=== PATIENT | female | born 1940 | race Caucasian/White ===

== ENCOUNTER 2021-10-20 07:34 | Observation (INO) | payer MEDICARE ==
[~2021-10-20] VITALS: Ht 170.2 cm; Wt 77.2 kg
[~2021-10-20 07:34] MED LIST: CALCIUM-MAGNES1 EAC4 PO; METFORMIN HCL500 MG PO; NITROGLYCERIN0.4 MG SL; PLAVIX75 MG PO; REPATHA SU140 MG/1 M SUB-Q; SPIRONOLACTONE25 MG PO; TOPROL XL50 MG PO; VITAMIN C1000 MG PO
--- NOTE | 2021-10-20 11:50 | NUR ---
10/20/21 1150 Rhina Franco 1132 PT ARRIVED IN PACU SLEEPY. SILVIANO DRAIN X 2 TO BULB SUCTION. 1140 PT AWAKENS TO VERBAL STIMULI AND FALLS BACK TO SLEEP.
--- NOTE | 2021-10-20 12:46 | NUR ---
PT TO ROOM IS PRESENT. PT ANSWERS QUESTIONS APPROPRIATELY REMAINS EYES CLOSED, 3 PERSON TRANSFER TO BED. RESTING NOW, AGREES SHE IS COMFORTABLE. DRAIN CARE EDUCATION AND DEMONSTRATION PROVIDED FOR HE ASKS APPROPRIATE QUESTIONS AND THEN VERBALIZES UNDERSTANDING.
--- NOTE | 2021-10-20 13:24 | NUR ---
PT AWAKE C/O SOME UPPER RIGHT ARM PAIN DENIES NEED OF PAIN MEDICATIONS. ENCOURAGED TYLENOL PT AGREES. REMAINS IN THE ROOM. SIPS OF H20 WELL TOLERATED. PT REFUSES FOOD ITEMS FOR NOW.
[2021-10-20] MEDS ORDERED: METOPROLOL TART50 MG PO (13:55)
--- NOTE | 2021-10-20 13:59 | NUR ---
PT AND HAVE JUST ENTERED RM-WAITING FOR RN. GAVE ENCOURAGEMENT, BLESSING AND WILL FOLLOW NEEDED
--- NOTE | 2021-10-20 14:13 | NUR ---
MED REC COMPLETED BY PHARMACY
--- NOTE | 2021-10-20 14:31 | NUR ---
PT IS AWAKE VISITING WITH HER . AGREES THE PAIN IN HER ARM IS DECREASED STATES "I KNOW IT'S THERE, BUT IT'S NOT BOTHERING ME" FRESH FRUIT WELL TOLERATED AGREES TO HAVE A GRILLED CHEESE NOW. FRESH H20 PROVIDED CALL LIGHT IN REACH.
--- NOTE | 2021-10-20 15:11 | NUR ---
DHARA BOLANOS CAME IN FOR BREAST CONSULT
--- NOTE | 2021-10-20 15:34 | NUR ---
pt up to the toilet able to void without difficulty. empties tal drain appropriately. pt continues on the side of the bed visiting actively denies discomforts or need
--- NOTE | 2021-10-20 18:11 | NUR ---
PT'S EMPTIES SILVIANO DRAIN AGAIN AND STRIPS THE LINE INSTRUCTED. PT DENIES ANY PAIN CONTINUES TO BE UPBEAT AND TALKATIVE.
--- NOTE | 2021-10-20 18:25 | NUR ---
PATIENT SITTING UP IN BED WATCHING TV, AT BEDSIDE. VITALS AND I&O'S CHARTED. CALL LIGHT IN REACH. NO FURTHER NEEDS AT THIS TIME.
--- NOTE | 2021-10-20 19:41 | NUR ---
REPORT RECEIVED FROM DAY SHIFT RN. PT LYING IN BED ALERT AND ORIENTED. DENIES NEEDS AT THIS TIME. SPOUSE IN ROOM. CALL LIGHT IN REACH. WHITE BOARD UPDATED.
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
--- NOTE | 2021-10-20 21:57 | NUR ---
EVENING ASSESSMENT COMPLETE. SCHEDULED MEDS ADMINISTERED PER EMAR. PT DENIES PAIN OR NAUSEA. DRESSING TO RIGHT CHEST INTACT WITH SCANT AMOUNT DRAINAGE. SILVIANO X 2 ON RIGHT CHEST DRAINED AND RECORDED. ASSISTED PT TO REPOSITION IN BED. WARM BLANKET PROVIDED. LINENS PROVIDED FOR WHO WILL SPEND THE NIGHT. PT FORGETFUL SO BED ALARM IN PLACE. PT DENIES QUESTIONS OR CONCERNS. CALL LIGHT IN REACH.
--- NOTE | 2021-10-21 00:21 | NUR ---
IN TO ROUND ON PT. SBA TO BR TO VOID. AT SINK TO WASH HANDS. BACK TO BED, COSMO WELL. GAIT UNSTEADY AT TIMES. PT DENIES PAIN. SEROSANG DRAINAGE NOTED COMING FROM AROUND SILVIANO #2 INSERTION SITE. SILVIANO #2 STRIPPED AND DRAINED OF 40ML SEROSANG DRAINAGE. DRESSING REINFORCED WITH OPSITE. BED ALARM FOR SAFETY. IN RECLINER AT BED SIDE.
--- NOTE | 2021-10-21 02:02 | NUR ---
VS AND I&O COMPLETE. PT REPORTS SHE IS RESTING WELL. STATES "I CAN TELL IT'S THERE" WHEN ASKED ABOUT PAIN. DENIES PRN AT THIS TIME. FRESH WATER PROVIDED FOR PT AND . NO FURTHER NEEDS. BED ALARM IN PLACE.
--- NOTE | 2021-10-21 04:15 | NUR ---
CALL LIGHT ANSWERED. PT UP TO BR WITH SBA TO VOID. BACK TO BED, COSMO WELL. PT DENIES PAIN. COFFEE AND FRESH WATER PROVIDED FOR PT AND SPOUSE. NO FURTHER NEEDS. CALL LIGHT IN REACH.
--- NOTE | 2021-10-21 05:33 | NUR ---
VS AND I&O COMPLETE. SCHEDULED PAIN MEDS ADMINISTERED PER EMAR. PT DENIES PAIN, REPORTS ACHING AND NUMBNESS IN RIGHT SIDE CHEST. DEGREASING SOLUTION RECLAIMER STRENGTH EQUAL BILAT. DRESSING TO RIGHT SIDE CHEST INTACT WITH SMALL AMOUNT SEROSANG DRAINAGE. SILVIANO X 2 STRIPPED, EMPTIED, AND RECORDED. PT DENIES FURTHER NEEDS. CALL LIGHT IN REACH.
--- NOTE | 2021-10-21 07:20 | NUR ---
Report received from Gabi BURGOS. Pt resting in bed with even and unlabored respirations. at bedside. No needs identified at this time, will continue plan of care.
--- NOTE | 2021-10-21 07:35 | NUR ---
PT AWAKE AND CHATTING WITH , WHO IS IN BEDSIDE CHAIR. LIGHTS ON, WHITE BOARD UPDATED. CALL LIGHT WITHIN REACH, NO FURTHER NEEDS AT THIS TIME. PT ACCEPTED WARM WASHCLOTH.
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
--- NOTE | 2021-10-21 09:07 | NUR ---
PT WATCHING TV WITH . CALL LIGHT WITHIN REACH, NO FURTHER NEEDS. AUBREY BUSTILLOS NOTIFIED OF NO OUTPUT, AND LOW DIASTOLIC READING.
--- NOTE | 2021-10-21 09:15 | NUR ---
Scheduled medications administered, assessment complete. Pt sitting up in bed, A+O, VSS. SILVIANO drains emptied, SILVIANO #1 scant drainage, SILVIANO #2 with 50ml serousanguinous drainage noted. Pt states no pain, "slightly annoying" but tolerable at this time. IV ancef not administered, pt's IV leaking and not usable, Dr Hassan notified and he gives verbal order to remove IV and DC ancef. Dressing to R breast C/D/I, camisole in place over dressing. at bedside, attentive to patient and engaged in plan of care. All questions answered at this time.
[2021-10-21] MEDS ORDERED: ACETAMINOPHEN500 MG PO (12:45)
--- NOTE | 2021-10-21 12:53 | NUR ---
Discharge teaching provided to patient and her who verbalize understanding, all questions answered. Educated extensively regarding SILVIANO drain care and using the log to record amounts. Reiterated Dr Hassan's request of drains to remain in place until each drain putting out <30ml per 24 hours, pt and voice understanding. Written, verbal and demonstration provided. Pt sent with supplies for drain maintenance. IV removal site WNL. Pt dresses self. 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
--- NOTE | 2021-10-21 13:02 | NUR ---
PT WALKING AROUND IN ROOM INDEPENDENTLY, AWAITING D/C. IN ROOM. AUBREY BUSTILLOS NOW IN ROOM DRAINING SILVIANO'S.
--- NOTE | 2021-10-21 13:37 | OR ---
[facility] [address], [place] [address] Signed DATE OF OPERATION: 10/20/2021 SURGEON: Elizabeth Pavon MD PREOPERATIVE DIAGNOSES: 1. 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 2. Clinically positive right axillary lymph nodes. POSTOPERATIVE DIAGNOSES: 1. 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 2. Clinically positive right axillary lymph nodes. PROCEDURE: Right modified radical mastectomy; lateral T-plasty of skin for cosmetic benefit. ANESTHESIA: General LMA; Mickey Soares CRNA INDICATIONS: This 81-year-old white woman is from [place], [place]. She is a patient of Dr. Sony Dhillon of [place]. She was noted to have a lump in the right breast "for years" and mammogram was found to be abnormal on ultrasound biopsy performed on September 18, 2021 at [place], [place] confirmed infiltrating ductal carcinoma. Biopsy of an axillary lymph node was also confirmed to show metastatic disease. The primary tumor was considered to be 3 cm axillary mass about 4 cm in size. Clinical examination shows her to have palpable lymph nodes in the right axilla and ulcerated neoplasm in the right periareolar area. She has no evidence of metastatic disease on chest x-ray. I have reviewed with her exhaustively her options of management to include lumpectomy with axillary dissection, anticipating radiation therapy versus modified radical mastectomy, likely without radiation therapy. The patient lives in an isolated area and has no interest whatsoever in postoperative radiation therapy and on that basis, prefers to undergo mastectomy. I have discussed with the patient and her the risks of bleeding, infection, cosmetic deformity, need for additional treatment almost certainly, given her clinically positive metastatic lymph nodes of the axilla as well as other unforeseen complications. This would include, but not limited to, arm edema and so on. Electronically Signed By: ELIZABETH PAVON MD 10/21/21 9037 PATIENT NAME: TEO SEN OPERATIVE REPORT DATE OF : 42 REPORT #: [id number] PHYSICIAN: ELIZABETH PAVON MD PCP: SONY DHILLON DO REPORT IS CONFIDENTIAL AND NOT TO BE RELEASED WITHOUT AUTHORIZATION [facility] [address] [place] [address] Signed She has pondered her options quite thoroughly and wishes to proceed with mastectomy at this time. FINDINGS: The ulcerated lesion was approximately 3 cm as noted in the imaging studies and near the medial aspect of the areola on the right side. Clinically positive metastatic disease to the low axilla was noted. Complete axillary dissection was accomplished showing the bulk of the clinically obvious abnormality in the low axilla, though a level 3 axillary adenectomy was performed. The long thoracic and thoracodorsal neurovascular bundles were identified and preserved. Given the redundancy of her axillary tissue and so forth, a T-plasty was undertaken for cosmetic benefit. She tolerated procedure well. Blood loss was 100 mL. DESCRIPTION OF PROCEDURE: The patient was brought to the operating room, given a general anesthetic. Preoperative antibiotic Ancef was given. Sequential compression device stockings were used and heparin subcutaneously administered. The right breast and axilla were prepared with a chlorhexidine solution and draped sterilely. An area designated for mastectomy was outlined with a marker, anticipating additional soft tissue to be excised in the lateral aspect, given her redundant axillary folds. Incision was made with a 20 blade and dissection carried through the dermis with electrocautery. Superior and inferior flaps were developed and the breast was then excised in a [id number] and [id number] direction. The remaining axillary lymph nodes including the bulky tissue were easily identified. Dissection was taken beneath the pectoralis. Then, Abbey's nodes between the pectoralis and the pectoralis minor were resected in continuity with the axillary contents. Sharp dissection was used to identify the axillary vein. Dissection was carried inferiorly to this ultimately identifying the long thoracic and thoracodorsal neurovascular bundles and preserving them. Dissection was undertaken thoroughly with wide resection of axillary contents. Clips were applied as necessary to vascular pedicles as necessary. Specimen was ultimately explanted and passed for pathology. Irrigation was undertaken with sterile water. Hemostasis was assured with electrocautery and clips. Two separate stab incisions were made in the inferior aspect of the upper abdomen and 10 mm flat Jc drains placed, one beneath the flap. See others in the depths of the axilla. The skin was closed with interrupted 2-0 Vicryl and T-plasty performed laterally. Complete closure was afforded with running subcuticular 3-0 Vicryl. Steri-Strips were applied as well as an ACTICOAT dressing. Drains were attached to bulb suction. Blood loss was estimated to be 100 mL. Sponge, needle, and instrument counts reported as correct x3. Electronically Signed By: ELIZABETH PAVON MD 10/21/21 1337 PATIENT NAME: TEO SEN OPERATIVE REPORT DATE OF : 42 REPORT #: [id number] PHYSICIAN: ELIZABETH PAVON MD PCP: SONY DHILLON DO REPORT IS CONFIDENTIAL AND NOT TO BE RELEASED WITHOUT AUTHORIZATION [address], [place] [address] Signed MD YULI Ayala/MODL /[id number] cc: Sony Dhillon DO Copies: SONY DHILLON DO ~ Electronically Signed By: ELIZABETH PAVON MD 10/21/21 1337 PATIENT NAME: TEO SEN OPERATIVE REPORT DATE OF : 42 REPORT #: [id number] PHYSICIAN: ELIZABETH PAVON MD PCP: SONY DHILLON DO REPORT IS CONFIDENTIAL AND NOT TO BE RELEASED WITHOUT AUTHORIZATION
--- NOTE | 2021-10-23 13:31 | PATH ---
[facility] [address] [facility] [place] [place] [address] Signed SPECIMEN(S): A RIGHT BREAST WITH AXILLARY TISSUE SPECIMEN SOURCE: A. 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 - Tumor size: 32 mm. - Histologic grade (Tres histologic score): - Glandular/tubular differentiation score: 1 of 3. - Nuclear pleomorphism score: 2 of 3. - Mitotic score: 1 of 3. - Overall grade: I/III (total score 4/9, low grade). - Tumor focality: Single focus of invasive carcinoma. - Associated in situ component: No in situ carcinoma is present. - Tumor extension: - Skin: Invasive carcinoma directly invades into the dermis and epidermis with skin ulceration. - Nipple: There is no involvement of the nipple. - Skeletal muscle: No skeletal muscle is present. - Margins: - Medial soft tissue margin: 18 mm. - All other margins: Greater than 18 mm. - Regional lymph nodes: - Total number of lymph nodes examined: 33. - Number of sentinel lymph nodes examined: 0. - Number of lymph nodes with macrometastasis (greater than 2 mm): 1. - Number of lymph nodes with micrometastasis (greater than 0.2 mm up to 2 mm and/or greater than 200 cells: 4. - Number of lymph nodes with isolated tumor cells: 0. - Size of largest metastatic deposit: 8.5 mm. - Extranodal extension: Present. PATIENT NAME: JUANA SEN PATHOLOGY DATE OF : 42 REPORT #: [id number] PHYSICIAN: [facility] PCP: ABHI DHILLON DO REPORT IS CONFIDENTIAL AND NOT TO BE RELEASED WITHOUT AUTHORIZATION [facility] [address] [place], [place] [address] Signed - Total number of lymph nodes positive for metastatic carcinoma: 5. - Treatment effect: No known presurgical therapy. - Lymphovascular invasion: Not definitively identified. - Dermal lymphovascular invasion: Not identified. - Microcalcifications: Not identified. - Additional pathologic findings: Fibrocystic change, biopsy site-related changes, and apocrine metaplasia. - Estrogen receptor, progesterone receptor and HER-2/ángel: Previously reported as ER positive, TX positive, HER-2 negative. - Surgical pathology stage: pT4b pN2a. COMMENT: As part of [facility]' Quality Improvement Program, this case was reviewed by another member of our pathology staff. JEFFREYK:KENYATTA:tessiew:C1NR MICROSCOPIC EXAMINATION: Histologic sections of all submitted blocks are examined by light microscopy. These findings, together with the gross examination, support the pathologic diagnosis. GROSS DESCRIPTION: The specimen, labeled "Juana Sen," and designated on the requisition "right breast with axillary tail," is received in formalin and consists of 1051 gram unoriented right breast with axillary tail. The breast is 26.5 x 18.0 x 5.4 cm. The axillary tail is 11.5 x 10.0 x 4.8 cm. The 24.2 x 12.5 cm ellipse of skin has a eccentrically located, everted nipple. 2 cm medial to the nipple is a red hemorrhagic ulcerated lesion that is a 2.6 x 2.2 cm. This lesion is a 5.0 cm from the superior skin margin, 5.3 cm from the inferior skin margin, 4.9 cm from the medial skin margin and 16.6 cm from the lateral skin margin. The skin surface is pink-ortiz and wrinkled. The specimen is inked as follows: superior - blue; inferior - green; and posterior - black. The specimen is serially sectioned from medial to lateral to reveal a 3.2 x 2.9 x 2.7 cm pale pink transparent mucoid mass present in the medial half of the breast communicating with the red hemorrhagic ulcerated lesion on the skin. The mass is abuts the anterior skin, 3.4 cm from the posterior soft tissue margin, 5.4 cm from the superior soft tissue margin, 3.5 cm from the inferior soft tissue margin, 1.8 cm from the medial soft PATIENT NAME: JUANA SEN PATHOLOGY DATE OF : 42 REPORT #: [id number] PHYSICIAN: TYRONE ANDREWS PCP: ABHI DHILLON DO REPORT IS CONFIDENTIAL AND NOT TO BE RELEASED WITHOUT AUTHORIZATION [facility] [address] [facility] [place] [place] [address] Signed tissue margin, and 16.2 cm from the lateral soft tissue margin. Approximately 90% of the specimen is a yellow-ortiz greasy adipose tissue and 10% is a white-ortiz rubbery fibrous tissue. Upon dissection of the axillary tail multiple possible lymph nodes are grossly identified that measure up to 4.5 cm in greatest dimension. The largest of these lymph nodes is grossly positive for tumor. [employer] sections are submitted in 21 cassettes. Cassette summary: (A1) nipple and skin (A2) posterior soft tissue resection margin closest to mass, perpendicular (A3) mass to skin and ulcerated lesion (A4) mass to adjacent adipose tissue (A5) additional section of mass (A6) fibroadipose tissue upper inner quadrant (A7) fibroadipose tissue upper outer quadrant (A8) fibroadipose tissue lower outer quadrant (A9) fibroadipose tissue lower inner quadrant (A10) largest possible lymph node grossly positive for tumor (A11) four possible lymph nodes, submitted whole (A12) six possible lymph nodes, submitted whole (A13) six possible lymph nodes, submitted whole (A14) six possible lymph nodes, submitted whole (A15) five possible lymph nodes, submitted whole (A16) one possible lymph node, sectioned (A17) one possible lymph node, sectioned (A18) one possible lymph node, sectioned (A19-A20) one possible lymph node, sectioned (A21) three possible lymph nodes, submitted whole. Cold ischemia time: Seven minutes Approximate Formalin time: 20-24 hours. FB (under the direct supervision of a pathologist) The Gross Description was prepared using a voice recognition system. The report was reviewed for accuracy; however, sound-alike word errors, addition and/or deletions may occur. If there is any question about this report, please contact Client Services. PERFORMING LABORATORY: The technical component was performed by [facility], [address] [place] [id number] (Group Segment Consultant: Alison Cantu MD; CLIA# [id number]). The professional interpretation was performed by PATIENT NAME: JUANA SEN PATHOLOGY DATE OF : 42 REPORT #: [id number] PHYSICIAN: [facility] PCP: ABHI DHILLON DO REPORT IS CONFIDENTIAL AND NOT TO BE RELEASED WITHOUT AUTHORIZATION [facility] [address] [place], [place] [address] Signed [facility], [facility], [address] [place] [address]. Diagnostician: Niles Ring MD Pathologist Electronically Signed 10/23/2021 Copies: ~ PATIENT NAME: JUANA SEN PATHOLOGY DATE OF : 42 REPORT #: [id number] PHYSICIAN: [facility] PCP: ABHI DHILLON DO REPORT IS CONFIDENTIAL AND NOT TO BE RELEASED WITHOUT AUTHORIZATION
== END 2021-10-21 13:15 | disposition home or self-care (01) ==
LOC: DS 07:34 → MS 12:15 → DS 12:16 → MS 10-21 13:15
PROVIDERS: ADMIT Surgery; ATTEND Surgery
PROC: 0HBT0ZZ Excision of Right Breast, Open Approach (ICD-10-PCS; principal; 2021-10-20 09:20)
DX: C50.311 Malignant neoplasm of lower-inner quadrant of right female breast (principal); N61.1 Abscess of the breast and nipple; E11.9 Type 2 diabetes mellitus without complications; Z95.5 Presence of coronary angioplasty implant and graft; Z86.73 Personal history of transient ischemic attack (TIA), and cerebral infarction without residual deficits; Z86.16 Personal history of COVID-19; Z88.5 Allergy status to narcotic agent; Z88.8 Allergy status to other drugs, medicaments and biological substances
CPT/HCPCS: 00404; 85025; 96372; 96374; 96376; G0378; J0131; J0690; J1100; J1644; J1885; J2001; J2405; J2704; J3010; J7121; Q9968